=== PATIENT | female | born 1950 | race Caucasian/White ===

== ENCOUNTER 2016-11-27 21:03 | Emergency (ER) | payer OTHER ==
[~2016-11-27] VITALS: Ht 160 cm; Wt 69.0 kg
[~2016-11-27 21:03] MED LIST: ALBU8I INH; ASPI81TA82 PO; AZIT250T43 PO; LATA.005%O EACH EYE
[2016-11-27 21:06] VITALS: BP 164/72; PULSE 89; RESP 14; TEMP 97.7; O2SAT 98
--- NOTE | 2016-11-27 21:35 | PD ---
HPI Chief Complaint: Injury Time Seen by Provider: 21:32 Travel History International Travel<30 days: No Contact w/Intl Traveler<30days: No Traveled to known affect area: No History of Present Illness HPI 66-year-old [id number] white female presents to emergency department for evaluation of a fall at the [facility] this evening. She states that she stumbled leaving the facility. She fell onto her right side and right hand. 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 She states that she does not really have any significant pain. She did not hit her head. No neck or back pain. No numbness, tingling. Symptoms are mild. No exacerbating activity. No palliative activity PFSH Past Medical History Narrative Medical Glaucoma Asthma: Yes (as a kid) Blood Disorders: No Cancer: No Cardiovascular Problems: No Endocrine: No Genitourinary: No Immune Disorder: No Musculoskeletal: No Neurologic: No Psychiatric: No Reproductive: No Respiratory: No Tetanus Vaccination: > 5 Years Past Surgical History Appendectomy: Yes Eye Surgery: Yes Social History Alcohol Use: Yes Tobacco Use: No Substance Use: No Allergies-Medications (Allergen,Severity, Reaction): Coded Allergies: No Known Allergies (Unverified , 11/27/16) Reported Meds & Prescriptions Reported Meds & Active Scripts Active Lortab (Hydrocodone-Acetaminophen) 5-325 Mg Tab 1 Tab PO Q6H PRN Azithromycin 250 Mg Tab 500 Mg PO DAILY Ventolin Hfa (Albuterol Sulfate) 8 Gm Aero 2 Puff INH Q4 * SHAKE WELL BEFORE USE * Reported Aspir-81 (Aspirin) 81 Mg Tab 81 Mg PO DAILY Xalatan (Latanoprost) 0.005 % Soln 1 Drop EACH EYE HS Review of Systems Except as stated in HPI: all other systems reviewed are Neg Physical Exam Narrative GENERAL: Well-developed, well-nourished in no apparent distress. Nontoxic appearing. HEAD: Normocephalic, atraumatic. EYES: Pupils equal round and reactive. Extraocular motions intact. No scleral icterus. No injection or drainage. ENT: Nose clear. Throat without erythema, tonsillar hypertrophy or exudate. Uvula midline. Airway patent. NECK: Trachea midline. Supple, nontender, moves head freely. No central bony tenderness or spasm. CARDIOVASCULAR: Regular rate and rhythm without murmurs, gallops, or rubs. RESPIRATORY: Clear to auscultation. Breath sounds equal bilaterally. No wheezes , rales, or rhonchi. GASTROINTESTINAL: Abdomen soft, non-tender, nondistended. No hepato-splenomegaly , or palpable masses. No guarding. EXTREMITIES: No clubbing, cyanosis, or edema. No joint tenderness. No obvious deformity of the hand. She moves her fingers freely. The skin is intact. BACK: Nontender without deformity. No flank tenderness. NEUROLOGICAL: Awake, alert and oriented x 3 .Cranial nerves grossly intact. Motor and sensory grossly within normal limits. Normal speech. Data Data Last Documented VS Vital Signs Date Time Temp Pulse Resp B/P Pulse Ox O2 Delivery O2 Flow Rate FiO2 11/27/16 21:39 Room Air 11/27/16 21:06 97.7 89 14 164/72 98 Orders Hand, Complete ([id number]) (11/27/16 21:24) Ice/Cold Pack (11/27/16 21:24) Splint Or Brace Apply/Monitor (11/27/16 21:53) Acetamin-Hydrocod 325-5 Mg ([place] 5-325 (11/27/16 22:00) MDM Medical Decision Making Medical Screen Exam Complete: Yes Emergency Medical Condition: Yes Medical Record Reviewed: Yes Interpretation(s) Right hand: Positive fracture of the base of the fifth finger radial aspect Differential Diagnosis MDM: High Differential diagnoses: Fracture, sprain, strain, dislocation, contusion, neurovascular injury Narrative Course pATIENT IS GIVEN ICE PACK. X-ray of the right hand is positive for a little finger fracture. She given Lortab 5 a grams by mouth. Her gutter splint. The case has been discussed with Dr. Ferreira who is agreed to follow patient up. Diagnosis Primary Impression: Fall Qualified Code: W19.XXXA - Fall, initial encounter Additional Impressions: Multiple contusions Fracture of phalanx of right little finger Qualified Code: S62.616A - Closed displaced fracture of proximal phalanx of right little finger, initial encounter Referrals: Marquise Ferreira III, MD 3 days Patient Instructions: General Instructions Additional Instructions: Rest. Ice for the next 3 days followed by heat . 3 Advil every 6 hours as needed for pain.. Lortab for more severe pain. Follow-up with Dr. Ferreira next week. Call his office Ray morning. Return to the ER for emergencies. Med/Other Pt SpecificInfo: Prescription(s) given, No Meds Exist/No RX given Scripts Hydrocodone-Acetaminophen (Lortab)5-325 Mg Tab1 Tab PO Q6H PRN (PAIN) #20 TAB Prov:Alexander Pearl MD 11/27/16 Disposition: 01 DISCHARGE HOME Condition: Stable Chivo German Nov 27, 2016 21:35
[2016-11-27] MEDS ORDERED: HYDR-3533 PO (21:53)
[2016-11-27] MEDS ORDERED: ACETAMINOPHEN/HYDROcodone 325 MG/5 MG TAB PO ONE (22:00)
--- NOTE | 2016-11-27 22:19 | RADRPT ---
EXAM DATE/TIME: 11/27/2016 21:35 [facility] COMPARISON: No previous studies available for comparison. INDICATIONS : Pain after fall. MEDICAL HISTORY : None. SURGICAL HISTORY : None. ENCOUNTER: Initial ACUITY: 1 day PAIN SCORE: 6/10 LOCATION: Right Hand, 4th and 5th digit. FINDINGS: A slightly comminuted avulsion fractures identified off the base of the proximal phalanx of the right fifth finger. The fracture extends into the metacarpal phalangeal joint. Tear of arthropathy is seen at the base of the first metacarpal. There is mild to moderate arthropathy of the interphalangeal and metacarpal phalangeal joints. CONCLUSION: Avulsion fracture off the base of the proximal phalanx of the right fifth finger Degenerative arthropathy of the interphalangeal, metacarpal phalangeal and carpal metacarpal joints. Dick Franklin MD on November 27, 2016 at 22:16 Board Certified Radiologist. This report was verified electronically.
== END 2016-11-27 22:35 | disposition home or self-care (01) ==
LOC: NEPB 21:03
DX: S62.616A Displaced fracture of proximal phalanx of right little finger, initial encounter for closed fracture (principal); Z86.69 Personal history of other diseases of the nervous system and sense organs; W01.0XXA Fall on same level from slipping, tripping and stumbling without subsequent striking against object, initial encounter; Y92.511 Restaurant or cafe as the place of occurrence of the external cause
CPT/HCPCS: 29125; 73130